=== PATIENT | female | born 1995 | race Two or more races ===

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

== ENCOUNTER 2020-11-19 19:11 | Observation (INO) ==
[2020-11-19 21:01] LABS: ABS Lymphocytes 1.8 10^3/ul (1.0-4.8); ABS Monocytes 0.8 10^3/ul (0-0.8); ABS Neutrophils 10.3 10^3/ul (1.5-7.7); Eosinophil % 0.2 %; Hematocrit 36 % (35-47); Hemoglobin 12.5 g/dL (12.0-16.0); Mean Corpuscular HGB Conc 34 g/dL (31-36); Mean Corpuscular Hemoglobin 30 pg (27-31); Mean Corpuscular Volume 88 fL (80-97); Mean Platelet Volume 7.5 fL (7.4-10.4); Platelet Count 245 10^3/uL (150-450); Red Blood Count 4.15 10^6 /uL (3.70-4.87); Red Cell Distribution Width 13 % (10-15); White Blood Count 13.1 10^3/uL (3.5-10.8)
[2020-11-19] MEDS ORDERED: Ondansetron 4 mg VIAL 2 MG/ML 2 ml VIAL IV ONE (21:01)
[2020-11-19 21:17] LABS: Urine Appearance Cloudy; Urine Bilirubin Negative (Negative); Urine Blood Negative (Negative); Urine Color Yellow; Urine Glucose Negative (Negative); Urine Ketones Trace (Negative); Urine Nitrite Negative (Negative); Urine Protein Negative (Negative); Urine Specific Gravity 1.025 (1.002-1.030); Urine Urobilinogen Negative (Negative)
[2020-11-19 21:20] LABS: ALT 21 U/L (7-52); AST 17 U/L (13-39); Albumin 4.3 g/dL (3.2-5.2); Albumin/Globulin Ratio 1.5 (1-3); Alkaline Phosphatase 72 U/L (35-149); Anion Gap 8 mmol/L (2-11); Blood Urea Nitrogen 8 mg/dL (6-24); CO2 Carbon Dioxide 24 mmol/L (22-32); Calcium 8.8 mg/dL (8.6-10.3); Chloride 102 mmol/L (101-111); EGFR African American 136.7 (>60); Globulin 2.8 g/dL (2-4); Glucose 98 mg/dL (70-100); Lipase < 10 U/L (11.0-82.0); Potassium 3.2 mmol/L (3.5-5.0); Sodium 134 mmol/L (135-145); Total Protein 7.1 g/dL (6.4-8.9)
[2020-11-19] MEDS ORDERED: Iohexol 300 (CONTRAST) 10 ML SDV IV ONE (21:25)
[2020-11-19 21:26] LABS: HCG Pregnancy 0.69 mIU/mL
[2020-11-20] MEDS ORDERED: Ondansetron 4 mg VIAL 2 MG/ML 2 ml VIAL IV PRN ×2 (00:41→16:49)
[2020-11-20] MEDS ORDERED: D5W 1/2 NS 40 Meq KCL 1000 ml 1,000 ML IV SCH (01:00)
[2020-11-20] MEDS ORDERED: Zosyn 3.375 GM IV - ED ONCE IV ONE (01:00)
[2020-11-20] MEDS: HYDROmorphone 0.5 MG/0.5 ML SYRINGE IV SLOW PU PRN ×4 (01:17→10:25)
[2020-11-20] MEDS ORDERED: Zosyn per Pharmacy NOTE FOLLOW UP PRN (02:20)
[2020-11-20] MEDS: Piperacillin/Tazobactam VIAL 3.375 GM in NS 0.9% 100 ml BAG 100 ML IVPB SCH ×2 (06:27→17:40)
[2020-11-20 13:42] LABS: Chlamydia trachomatis NAA Negative (Negative); Neisseria gonorrhoeae (GC) NAA Negative (Negative)
[2020-11-20] MEDS ORDERED: Midazolam 2 mg/2 ml VIAL 1 mg/ml 2 ml VIAL (2 mg) ONE ×2 (14:38→16:29)
[2020-11-20] MEDS ORDERED: fentaNYL 100 mcg/2 ml 50 MCG/ML VIAL ONE ×3 (14:38→18:34)
[2020-11-20] MEDS ORDERED: Propofol 10 MG/ML 20 ML BTL ONE (16:29)
[2020-11-20] MEDS ORDERED: Succinylcholine 200 mg VIAL 20 mg/ml 10 ml VIAL (200 mg) ONE (16:29)
[2020-11-20] MEDS ORDERED: Dexamethasone IV 4 MG/ML VIAL 1 ml VIAL ONE ×2 (16:29→17:31)
[2020-11-20] MEDS ORDERED: Ondansetron 4 mg VIAL 2 MG/ML 2 ml VIAL ONE ×3 (16:29→18:34)
[2020-11-20] MEDS ORDERED: Bupivacaine 0.25% SDV 30 ML ONE (16:42)
[2020-11-20] MEDS ORDERED: Sodium Citrate/Citric Acid LIQ 15 ML UDC PO ONE (16:46)
[2020-11-20] MEDS ORDERED: Buffered Lidocaine 1% SYRIN 1 ml INTRADERM ONE (16:46)
[2020-11-20] MEDS ORDERED: HYDROmorphone 1 MG/1 ML SYRINGE IV PRN (16:49)
[2020-11-20] MEDS ORDERED: fentaNYL 100 mcg/2 ml 50 MCG/ML VIAL IV PRN (16:49)
[2020-11-20] MEDS ORDERED: Naloxone 0.4 mg VIAL 0.4 mg/ml 1 ml VIAL IV PRN (16:49)
[2020-11-20] MEDS ORDERED: Sodium Citrate/Citric Acid LIQ 15 ML UDC ONE (16:53)
[2020-11-20] MEDS ORDERED: Lactated Ringers 1000 ml BAG 1,000 ML IV SCH (17:00)
[2020-11-20] MEDS ORDERED: Rocuronium 50 mg VIAL 10 mg/ml 5 ml VIAL (50 mg) ONE (17:20)
[2020-11-20 20:39] VITALS: BP 109/65
== END 2020-11-20 21:29 | disposition home or self-care (01) ==
LOC: SSU 19:11 → ED 19:11 → SSU 11-20 03:13
PROVIDERS: ADMIT Internal Medicine; ATTEND Surgery

== ENCOUNTER 2023-06-06 05:27 | Inpatient (IN) ==
[2023-06-06 06:29] LABS: Hematocrit 31.3 % (35-45); Hemoglobin 10.6 g/dL (11.5-14.3); Mean Corpuscular Hemoglobin 27.5 pg (27-33); Mean Corpuscular Hgb Conc 33.7 g/dL (31-36); Mean Corpuscular Volume 81.5 fL (80-97); Mean Platelet Volume 8.1 fL (7.5-11.2); Platelet Count 252 10^3/uL (150-450); Red Blood Count 3.85 10^6/uL (3.63-4.92); Red Cell Distribution Width 14.2 % (12-17); White Blood Count 6.7 10^3/uL (3.8-11.8)
[2023-06-06] MEDS: Lactated Ringers 1000 ml BAG 1,000 ML IV ONE (06:30)
[2023-06-06] MEDS ORDERED: Ondansetron 4 mg VIAL 2 MG/ML 2 ml VIAL ONE ×2 (07:03→08:27)
[2023-06-06] MEDS ORDERED: Morphine PF AMP (0.5MG/ML) 5 MG/10 ML AMP ONE ×2 (07:07→08:27)
[2023-06-06] MEDS ORDERED: Oxytocin 10 UNITS/ML 1 ML VIAL ONE ×2 (07:14→08:28)
[2023-06-06] MEDS: Buffered Lidocaine 1% SYRIN 1 ml INTRADERM ONE (07:20)
[2023-06-06] MEDS: Sodium Citrate/Citric Acid LIQ 15 ML UDC PO ONE (07:20)
[2023-06-06] MEDS: Lactated Ringers 1000 ml BAG 1,000 ML IV SCH ×2 (07:27→13:45)
[2023-06-06] MEDS ORDERED: Ondansetron 4 mg VIAL 2 MG/ML 2 ml VIAL IV ONE (08:27)
[2023-06-06] MEDS ORDERED: Morphine PF AMP (0.5MG/ML) 5 MG/10 ML AMP IV ONE (08:27)
[2023-06-06] MEDS ORDERED: Oxytocin 10 UNITS/ML 1 ML VIAL IV ONE (08:28)
[2023-06-06] MEDS ORDERED: Phenylephrine 40 mcg/mL 10mL (400mcg) SYRINGE INJ ONE (09:51)
[2023-06-06] MEDS ORDERED: Phenylephrine 40 mcg/mL 10mL (400mcg) SYRINGE ONE (09:51)
[2023-06-06] MEDS: ceFOXitin 2 GM PREMIX 50 ML IVPB ONE (10:15)
[2023-06-06] MEDS ORDERED: Acetaminophen IV 1 GM/100ML 1,000 MG/100 ML BAG IV ONE ×2 (10:30)
[2023-06-06] MEDS ORDERED: Naloxone 0.4 mg VIAL 0.4 mg/ml 1 ml VIAL IV PRN (10:32)
[2023-06-06] MEDS ORDERED: Dexamethasone IV 4 MG/ML VIAL 1 ml VIAL ONE (10:32)
[2023-06-06] MEDS ORDERED: Dexamethasone IV 4 MG/ML VIAL 1 ml VIAL IV SLOW PU ONE (10:32)
[2023-06-06] MEDS ORDERED: HYDROmorphone 1 MG/1 ML SYRINGE IV PRN (10:32)
[2023-06-06] MEDS ORDERED: Acetaminophen IV 1 GM/100ML 1,000 MG/100 ML BAG IV PRN (10:33)
[2023-06-06] MEDS ORDERED: Ondansetron 4 mg VIAL 2 MG/ML 2 ml VIAL IV PRN (10:33)
[2023-06-06] MEDS ORDERED: Metoclopramide 5 MG/ML VIAL (10 mg) IV PRN (10:33)
[2023-06-06] MEDS ORDERED: Naloxone 0.4 mg VIAL 0.4 mg/ml 1 ml VIAL IV PUSH PRN (10:33)
[2023-06-06] MEDS ORDERED: Dibucaine 1% OINT 28.35 GM TUBE PR PRN (11:30)
[2023-06-06] MEDS ORDERED: Witch Hazel PAD JAR TOPICAL PRN (11:30)
[2023-06-06] MEDS ORDERED: Glycerin ADULT 2.4 gm SUPP PR PRN (11:30)
[2023-06-06 11:37] LABS: Urine Appearance Clear; Urine Bilirubin Negative (Negative); Urine Blood Negative (Negative); Urine Color Light-Yellow; Urine Glucose Negative (Negative); Urine Ketones Negative (Negative); Urine Nitrite Negative (Negative); Urine Protein Negative (Negative); Urine Specific Gravity 1.008 (1.002-1.030); Urine Urobilinogen Negative (Negative)
[2023-06-06 12:21] LABS: Urine Benzodiazepine Screen None Detected (None Detect); Urine Cannabinoids Screen None Detected (None Detect); Urine Opiates Screen None Detected (None Detect)
[2023-06-06] MEDS: Oxytocin in LR 20,000 MILLI.UNIT/1,000 ML BAG IV SCH ×2 (13:01→14:00)
[2023-06-06] MEDS: Methylergonovine 0.2 mg AMPULE 1 ml AMP ONE (13:06)
[2023-06-06] MEDS: fentaNYL 100 mcg/2 ml 50 MCG/ML VIAL ONE (13:26)
[2023-06-06] MEDS ORDERED: fentaNYL 100 mcg/2 ml 50 MCG/ML VIAL IV SLOW PU PRN (13:40)
[2023-06-06] MEDS ORDERED: ceFOXitin 2 GM IVPREMIX 2 GM/50 ML BAG IVPB SCH (14:00)
[2023-06-06 14:13] LABS: Hematocrit 28.2 % (35-45); Hemoglobin 9.3 g/dL (11.5-14.3); Mean Corpuscular Hemoglobin 27.2 pg (27-33); Mean Corpuscular Hgb Conc 33.1 g/dL (31-36); Mean Corpuscular Volume 82.1 fL (80-97); Mean Platelet Volume 8.3 fL (7.5-11.2); Platelet Count 226 10^3/uL (150-450); Red Blood Count 3.44 10^6/uL (3.63-4.92); Red Cell Distribution Width 14.7 % (12-17); White Blood Count 11.2 10^3/uL (3.8-11.8)
[2023-06-06 14:20] LABS: Platelet Count 246 10^3/ul (150-450)
[2023-06-06 14:23] LABS: Activated Partial Thrombo Time 27.5 seconds (26.0-38.0); INR 0.95 (0.83-1.13)
[2023-06-06] MEDS ORDERED: fentaNYL 100 mcg/2 ml 50 MCG/ML VIAL ONE (14:31)
[2023-06-06] MEDS ORDERED: Midazolam 2 mg/2 ml VIAL 1 mg/ml 2 ml VIAL (2 mg) ONE (14:31)
[2023-06-06] MEDS ORDERED: fentaNYL 100 mcg/2 ml 50 MCG/ML VIAL IV ONE (14:31)
[2023-06-06] MEDS ORDERED: Midazolam 2 mg/2 ml VIAL 1 mg/ml 2 ml VIAL (2 mg) IV SLOW PU ONE (14:31)
[2023-06-06 14:41] LABS: Schistocytes ABSENT
[2023-06-06 17:00] LABS: ABS Monocytes 0.4 10^3/uL (0.0-0.9); ABS Neutrophils 11.7 10^3/uL (1.5-7.6); Hematocrit 27.7 % (35-45); Hemoglobin 9.3 g/dL (11.5-14.3); Lymphocyte % 7.7 %; Mean Corpuscular Hemoglobin 27.9 pg (27-33); Mean Corpuscular Hgb Conc 33.4 g/dL (31-36); Mean Corpuscular Volume 83.3 fL (80-97); Mean Platelet Volume 8.1 fL (7.5-11.2); Platelet Count 222 10^3/uL (150-450); Red Blood Count 3.32 10^6/uL (3.63-4.92); Red Cell Distribution Width 15.2 % (12-17); White Blood Count 13.1 10^3/uL (3.8-11.8)
[2023-06-06] MEDS: Oxytocin in LR 20,000 MILLI.UNIT/1,000 ML BAG IV ONE (18:08)
[2023-06-06] MEDS: ceFOXitin 2 GM IVPREMIX 2 GM/50 ML BAG IVPB SCH (18:14)
[2023-06-06] MEDS: Methylergonovine 0.2 mg AMPULE 1 ml AMP IM ONE (20:21)
[2023-06-06 22:18] LABS: Hematocrit 20.3 % (35-45); Hemoglobin 6.7 g/dL (11.5-14.3); Mean Corpuscular Hemoglobin 27.6 pg (27-33); Mean Corpuscular Hgb Conc 33.1 g/dL (31-36); Mean Corpuscular Volume 83.5 fL (80-97); Mean Platelet Volume 7.9 fL (7.5-11.2); Platelet Count 203 10^3/uL (150-450); Red Blood Count 2.44 10^6/uL (3.63-4.92); Red Cell Distribution Width 15.3 % (12-17); White Blood Count 11.1 10^3/uL (3.8-11.8)
[2023-06-06 22:19] LABS: Platelet Count 196 10^3/ul (150-450)
[2023-06-06 22:42] LABS: Activated Partial Thrombo Time 27.2 seconds (26.0-38.0); INR 1.01 (0.83-1.13)
[2023-06-06 22:47] LABS: Schistocytes ABSENT
[2023-06-07 04:23] LABS: ABS Lymphocytes 2.3 10^3/uL (1.0-4.8); ABS Monocytes 0.7 10^3/uL (0.0-0.9); ABS Neutrophils 5.9 10^3/uL (1.5-7.6); ABS Nucleated RBC 0.01 10^3/ul; Eosinophil % 0.1 %; Hematocrit 21.3 % (35-45); Hemoglobin 7.2 g/dL (11.5-14.3); Mean Corpuscular Hemoglobin 28.4 pg (27-33); Mean Corpuscular Hgb Conc 33.9 g/dL (31-36); Mean Corpuscular Volume 83.9 fL (80-97); Mean Platelet Volume 8.3 fL (7.5-11.2); Nucleated Red Blood Cells % 0.1 %/100WBC (0.0-0.8); Platelet Count 171 10^3/uL (150-450); Red Blood Count 2.53 10^6/uL (3.63-4.92); Red Cell Distribution Width 14.9 % (12-17); White Blood Count 8.9 10^3/uL (3.8-11.8)
[2023-06-07] MEDS: Varicella Virus Vaccine Live 0.5 ML VIAL SUBCUT ONE (10:41)
[2023-06-09 07:41] VITALS: BP 128/72
== END 2023-06-09 11:00 | disposition home or self-care (01) | DRG 540 ==
LOC: MCHOB 05:27
PROVIDERS: ADMIT Obstetrics & Gynecology; ATTEND Obstetrics & Gynecology